=== PATIENT | female | born 1950 | race Caucasian/White ===

== ENCOUNTER 2024-01-20 07:34 | Outpatient (OUT) | payer MEDICARE, SELFPAY ==
[2024-01-20 08:06] LABS: Basophils Percent Auto 0.5 % (0.2-2.0); Eosinophils Absolute Auto 0.1 10^3/uL (0.0-0.7); Eosinophils Percent Auto 2.5 % (0.9-7.0); Hematocrit 42.4 % (36.0-48.0); Hemoglobin 13.7 g/dL (12.0-16.0); Immature Granulocytes Abs Auto 0.01 10^3/uL (0.00-0.03); Immature Granulocytes Pct Auto 0.2 % (0.0-0.5); Lymphocytes Percent Auto 48.4 % (20.5-60.0); Mean Corpuscular HGB Conc 32.3 g/dL (29.9-35.2); Mean Corpuscular Hemoglobin 29.1 pg (26.7-34.0); Mean Corpuscular Volume 90.2 fL (81.0-99.0); Mean Platelet Volume 10.3 fL (9.5-13.5); Monocytes Absolute Auto 0.3 10^3/uL (0.3-0.8); Monocytes Percent Auto 7.9 % (1.7-12.0); Neutrophils Absolute Auto 1.7 10^3/uL (1.4-6.5); Neutrophils Percent Auto 40.5 % (43.0-75.0); Platelet Count 186 10^3/uL (150-450); Red Cell Distribution Width 12.6 % (11.0-15.0); White Blood Count 4.1 10^3/uL (4.0-11.0)
[2024-01-20 08:16] LABS: Alanine Aminotransferase 26 U/L (14-59); Albumin Level 3.6 g/dL (3.4-5.0); Alkaline Phosphatase 59 U/L (46-116); Anion Gap 7.3; Aspartate Amino Transferase 19 U/L (15-37); BUN Creatinine Ratio 21.8; Bilirubin Total 1.5 mg/dL (0.2-1.0); Calcium 8.9 mg/dL (8.5-10.1); Chloride 105 mmol/L (98-107); Chol HDL Ratio 2.2; Cholesterol 158 mg/dL (<=200); Estimated GFR (African America >60 (>=60); Estimated GFR (Non-African Ame 54 (>=60); Globulin 3.7 g/dL; Glucose 104 mg/dL (74-106); HDL Cholesterol 72 mg/dL (40-60); Potassium 4.3 mmol/L (3.5-5.1); Sodium 141 mmol/L (136-145); Total Protein 7.3 g/dL (6.4-8.2); Triglycerides 64 mg/dL (<=150); VLDL CHOLESTEROL 12.8 mg/dL
== END 2024-01-20 07:35 | disposition home or self-care (01) ==
LOC: LAB 07:40
PROVIDERS: PCP Family Medicine; Visit Provider Family Medicine
DX: E78.5 Hyperlipidemia, unspecified (principal); M81.0 Age-related osteoporosis without current pathological fracture
CPT/HCPCS: 36415; 80053; 80061; 85025

== ENCOUNTER 2024-04-24 13:04 | Outpatient (OUT) | payer MEDICARE, SELFPAY | END 2024-04-24 13:05 | disposition home or self-care (01) | LOC: PST 13:04 | PROVIDERS: PCP Family Medicine; Visit Provider Surgery | DX: Z01.818 Encounter for other preprocedural examination (principal); Z12.11 Encounter for screening for malignant neoplasm of colon ==

== ENCOUNTER 2024-05-13 06:14 | Day surgery (SDC) | payer MEDICARE, SELFPAY ==
--- NOTE | 2024-05-13 | OP_ITS ---
OPERATION DATE: 05/13/2024 PREOPERATIVE DIAGNOSIS: Colorectal screening. POSTOPERATIVE DIAGNOSIS: Redundant colon. PROCEDURE: Colonoscopy to cecum. SURGEON: Jeromy Carolina M.D. ANESTHESIA: Monitored anesthesia care. ESTIMATED BLOOD LOSS: Zero. INDICATIONS AND CONSENT: Patient is a 73-year-old female presents for colorectal screening. Indications, risks, benefits, alternatives of proceeding with colonoscopy were explained extensively to the patient, including the risks of bleeding, colon perforation or anesthetic complications. All of her questions were answered. Informed consent was obtained. PROCEDURE: Patient brought to the operating room, placed in the left lateral decubitus position. Monitored anesthesia care was provided. Rectal exam was performed which revealed no masses or blood. The scope was inserted into the anal canal. Under direct visualization was advanced. With the aid of abdominal compression, as well as switching to a pediatric scope, the scope was able to be advanced to the cecum where cecal markings were clearly identified. There was noted to be a good prep. Upon withdrawal of the scope, mucosal surfaces were carefully examined. There were no mass lesions or polyps. No inflammatory changes or ulcerations. No significant diverticulosis. The scope was retroflexed in the anal canal. There was no significant hemorrhoidal disease. Scope was then withdrawn. Patient tolerated procedure well, was sent to recovery room in good condition. Follow up screening should be in 10 years if patient remains in good health. CC: Rosa Saavedra M.D. LOGAN
--- OUTSIDE RECORDS SUMMARY | 2024-05-13 06:17 | XMS_ITS ---
Patient Summarization (C-CDA 2.1 CCD) Created on: May 13, 2024 ALICJA MOONEY : 1950 Sex: Female Author Organization Sample organization Care Team Providers Care Steward/Stewardess Name Role Phone DR DESTINY RODARTE Attending Unavailable ASTER, DR DESTINY Somers Admitting Unavailable ASTER, DR DESTINY Somers Primary Care Unavailable ASTER, DR DESTINY Somers Consulting Unavailable ASTER, DR DESTINY Somers Admitting Unavailable ASTER, DR DESTIYN Somers Primary Care Unavailable ASTER, DR DESTINY Somers Consulting Unavailable ASTER, DR DESTINY Somers Attending Unavailable Rosa Saavedra Unavailable ROSA SAAVEDRA Primary Care Physician ROSA SAAVEDRA Referring Unavailable Jeromy DONALD Attending Unavailable Allergies Allergy Classification Reported Allergen(s) Allergy Type Date of Onset Reaction(s) Facility (1 source) No Known Medication Allergies; Translations: [No Known Medication Allergies] Propensity to adverse reactions (disorder) [facility] Repository Encounters Encounter Date Encounter Type Care Provider Facility Start: 03-04-2024 End: 03-05-2024 ambulatory ROSA SAAVEDRA Facility:[facility] Start: 03-04-2024 End: 03-04-2024 Patient encounter procedure Jeromy DONALD General Surgery Ge/[facility] Start: 01-30-2024 ambulatory ROSA SAAVEDRA Facility:[facility] Start: 01-16-2024 End: 01-16-2024 ambulatory [facility] Work Phone: Start: 01-16-2024 End: 01-16-2024 Patient encounter procedure [facility] Work Phone: Start: 09-06-2023 End: 09-06-2023 ambulatory Rosa Saavedra Other [employer] Other Start: 09-06-2023 Encounter by leigh Saavedra [facility] Start: 07-23-2023 End: 07-23-2023 ambulatory Rosa Saavedra Other [employer] Other Start: 07-23-2023 Office outpatient vi sit 15 minutes Rosa Keri [facility] Start: 07-10-2023 End: 07-10-2023 ambulatory Rosa Saavedra Other [employer] Other Start: 07-10-2023 Telephone encounter Rosa Keri [facility] Start: 08-20-2022 End: 08-21-[address] DESTINY RODARTE Facility:[facility] Start: 08-14-2022 End: 08-15-[address] DESTINY RODARTE Facility:[facility] Immunizations Immunization Date Immunization Notes Care Provider Fa cility 08-20-2023 influenza virus vaccine, unspecified formulation Jeromy DONALD [facility] 04-18-2022 SARS-CoV-2 (COVID-19 ) mRNA-1273 vaccine Jeromy NILL [facility] 10-12-2021 SARS-CoV-2 (COVID-19 ) mRNA-1273 vaccine [email or web address] [facility] Comment on above: Result Comment: 2023: [id number] 01-31-2021 SARS-CoV-2 (COVID-19 ) mRNA-1273 vaccine Jeromy Code42L [facility] Comment on above: Result Comment: 2023: [id number] 01-03-2021 SARS-CoV-2 (COVID-19 ) mRNA-1273 vaccine Jeromy Code42L [facility] Comment on above: Result Comment: 2023: [id number] Medications Current Medications Medication Drug Class(es) Dates Sig (Normalized) Sig (Original) atorvastatin 10 mg oral tablet (5 sources) HMG-CoA Reductase Inhibitor Start: 01-15-2024 take 1 tablet by mouth once daily atorvastatin 10 mg Tab 10 mg = 1 tab(s), Oral, Daily, Refills(s) 0 Start Date: 01/15/24 Status: Ordered take 1 tablet by suhas th every twenty-four hours Atorvastatin Calcium 10 MG 1 tablet Oral ly Once a day for 90 days Active Fish Oils (1 source) Start: 03-04-2024 take 1 capsule by mouth once daily Fish Oil 1000 mg oral capsule 1,000 mg = 1 cap(s), Oral, Daily, Refills(s) 0 Start Date: 03/04/24 Status: Ordered ibandronic acid 150 mg oral tablet (3 sources) Bisphosphonate Start: 01-16-2024 take 150 mg by mouth every month Ibandronate Active 150 MG PO every month January 16, 2024 12:00am take 1 tablet by mouth once tremayne y Ibandronate Sodium 150 MG 1 tablet 60 minutes before the first food, beverage or medicine of the day with plain water Orally for 90 days Active Multi Vitamins oral tablet (1 source) Start: 03-04-2024 take 1 tablet by mouth once daily Multi Vitamins oral tablet 1 tab(s), Oral, Daily, Refill(s) 0 Start Date: 03/04/24 Status: Ordered Payers Date Payer Category Payer Medicare [id number] 1960 Unknown [id number] 1950 Unknown [id number] 1950 Unknown [id number] 1950 Unknown [id number] Plan of Treatment Date Care Activity Detail Author Start: 01-16-2024 Patient referral [facility] Work Phone: Comprehensive metabo lic 2000 panel - Serum or Plasma [facility] Patient referral [facility] Work Phone: [facility] Problems Problem Classification Problem Date Documented Da te Episodic/Chronic Anxiety disorders (2 sources) Anxiety; Translations: [Other specified anxiety disorders] 01-16-2024 Chronic Disorders of lipid metabolism (10 sources) Pure hypercholesterolemi a, unspecified; Translations: [Dyslipidemia] Onset: 08-14-2022 Chronic Malaise and fatigue (5 sources) Other fatigue; Translations: [OTHER FATIGUE] Onset: 08-15-2022 Episodic Osteoporosis (5 sources) Senile osteoporosis; Translations: [Age-related osteoporosis without current pathological fracture] Chronic Other screening for suspected conditions (not mental disorders or infectious disease) (3 sources) Patient encounter status; Translations: [Encounter for screening for malignant neoplasm of colon] Onset: 03-04-2024 01-16-2024 Episodic Unclassified (1 source) Body mass index 20-24 - normal 03-04-2024 Unclassified (2 sources) Patient encounter status 02-07-2024 Procedures Date Procedure Procedure Detail Performing Clinician Start: 11-04-2013 Colonoscopy Jeromy MAGANA Screening for malign ant neoplasm of colon Rosa Saavedra Other Results Test Name Value Interpretation Reference Range Facil ity Consent for Procedure/Surger yon 03-06-2024 Consent for Procedure/Surgery [id number] .00TIFF Normal [facility] Facesheeton 03-05-2024 Facesheet [id number] .00TIFF Normal [facility] Ambulatory Visit Summaryon 0 03-04-2024 Ambulatory Visit Summary ALICJA MOONEY :1950 Visit Date:03/04/2024 Ambulatory Visit Instructions Your Diagnosis Screening for malignant neoplasm of colon Your Care Team Attending Physician - GE ALVARES, Jeromy Lopez Primary Care Physician - ROSA SAAVEDRA MD Referring Physician - ROSA SAAVEDRA MD This Is Your Medications List Contact prescribing physician if questions or concerns atorvastatin (atorvastatin 10 mg Tab) multivitamin (Multi Vitamins oral tablet) omega-3 polyunsaturated fatty acids (Fish Oil 1000 mg oral capsule) Procedures Performed Colonoscopy (11/04/2013). Discharge Vitals Heart Rate (Peripheral) 68 Respiratory Rate 16 Blood Pressure 118/62 Height 167 cm Height 66 in Weight 67.2 kg Weight 147.84 lb BMI 24.1 Medications What How Much When Instructions Unchanged atorvastatin (atorvastatin 10 mg Tab) 1 Tablets By Mouth Every day Contact prescribing physician if questions or concerns Unchanged multivitamin (Multi Vitamins oral tablet) 1 Tablets By Mouth Every day Contact prescribing physician if questions or concerns Unchanged omega-3 polyunsaturated fatty acids (Fish Oil 1000 mg oral capsule) 1 Capsules By Mouth Every day Contact prescribing physician if questions or concerns Allergies No Known Allergies No Known Medication Allergies Problems Ongoing - Any problem that you are currently receiving treatment for. Anxiety BMI 24.0-24.9, adult Dyslipidemia Osteoporosis Screen for colon cancer Screening for malignant neoplasm of colon Patient Survey You may receive a survey via text or e-mail asking about your office visit. Please share your experience with us by completing your survey. We appreciate your feedback and thank you for choosing us for your care. Normal [facility] Physician Referralon 024 Physician Referral [id number] .00TIFF Normal [facility] TSHon 08-20-2022 TSH 1.668 uIU/mL Normal 0.358-3.740 [facility] Comment on above: Performed By: #### T SH #### [facility] [address] [place] [address] Dr. Toby Toro CBC AUTO DIFFon 08-14-2022 BASO # 0.0 103/ul Normal 0.0-0.1 [facility] Comment on above: Performed By: #### C BC #### [facility] [address] [place] [address] Dr. Toby Toro Basophils/100 WBC (Bld) 0.6 % Normal 0.2-2.0 [facility] Comment on above: Performed By: #### C BC #### [facility] [address] [place] [address] Dr. Toby Toro EO # 0.1 103/ul Normal 0.0-0.7 [facility] Comment on above: Performed By: #### C BC #### [facility] [address] [place] [address] Dr. Toby Toro Eosinophils/100 WBC (Bld) 2.5 % Normal 0.9-7.0 [facility] Comment on above: Performed By: #### C BC #### [facility] [address] [address] [address] Toby Toro Erythrocyte distribution width (RBC) [Ratio] 13.3 % Normal 11.0-15.0 [facility] Comment on above: Performed By: #### C BC #### [facility] [address] [place] [address] Dr. Toby Toro Hematocrit (Bld) [Volume fraction] 42.5 % Normal 36.0-48.0 [facility] Comment on above: Performed By: #### C BC #### [facility] [address] [place] [address] Dr. Toby Toro Hemoglobin (Bld) [Mass/Vol] 13.7 g/dL Normal 12.0-16.0 [facility] Comment on above: Performed By: #### C BC #### [facility] [address] [place] [address] Dr. Toby Toro IG # 0.01 10e3/ul Normal 0.00-0.03 [facility] Comment on above: Performed By: #### C BC #### [facility] [address] [place] [address] Dr. Toby Toro IG % 0.3 % Normal 0.0-0.5 [facility] Comment on above: Performed By: #### C BC #### [facility] [address] [place] [address] Dr. Toby Toro LYMPH # 1.8 103/ul Normal 1.2-3.8 [facility] Comment on above: Performed By: #### C BC #### [facility] [address] [place] [address] Dr. Toby Toor Lymphocytes/100 WBC (Bld) 48.8 % Normal 20.5-60.0 [facility] Comment on above: Performed By: #### C BC #### [facility] [address] [place] [address] Dr. Toby Toro MANUAL DIFF REQ NO Normal [facility] Comment on above: Performed By: #### C BC #### [facility] [address] [place] [address] Dr. Toby Toro MCH (RBC) [Entitic mass] 29.0 pg Normal 26.7-34.0 [facility] Comment on above: Performed By: #### C BC #### [facility] [address] [place] [address] Dr. Toby Toro MCHC (RBC) [Mass/Vol] 32.2 g/dL Normal 29.9-35.2 [facility] Comment on above: Performed By: #### C BC #### [facility] [address] [place] [address] Dr. Toby Toro MCV (RBC) [Entitic vol] 90.0 fL Normal 81.0-99.0 [facility] Comment on above: Performed By: #### C BC #### [facility] [address] [place] [address] Dr. Toby Toro MONO # 0.3 103/ul Normal 0.3-0.8 [facility] Comment on above: Performed By: #### C BC #### [facility] [address] [place] [address] Dr. Toby Toro Monocytes/100 WBC (Bld) 8.3 % Normal 1.7-12.0 [facility] Comment on above: Performed By: #### C BC #### [facility] [address] [place] [address] Dr. Toby Toro NEUT # 1.4 103/ul Normal 1.4-6.5 [facility] Comment on above: Performed By: #### C BC #### [facility] [address] [place] [address] Dr. Toby Toro Neutrophils/100 WBC (Bld) 39.5 % Critically low 43.0-75.0 [facility] Comment on above: Performed By: #### C BC #### [facility] [address] [place] [address] Dr. Toby Toro Platelet mean volume (Bld) [Entitic vol] 10.3 fL Normal 9.5-13.5 [facility] Comment on above: Performed By: #### C BC #### [facility] [address] [address] [address] Toby Toro PLT 181 103/ul Normal 150-450 [facility] Comment on above: Performed By: #### C BC #### [facility] [address] [address] [address] Toby Toro RBC 4.72 106/ul Normal 4.20-5.40 [facility] Comment on above: Performed By: #### C BC #### [facility] [address] [address] [address] Toby Toro WBC 3.6 103/ul Critically low 4.0-11.0 [facility] Comment on above: Performed By: #### C BC #### [facility] [address] [place] [address] Dr. Toby Toro LIPID PROFILEon 08-14-2022 CHOL-HDL RATIO NORM SEE BELOW Normal [facility] Comment on above: Result Comment: 3.3 - 4.4 LOW RISK 4.4 - 7.1 AVERAGE RISK 7.1 - 11.0 MODERATE RISK >11.0 HIGH RISK Performed By: #### C MP, LIPID #### [facility] [address] [place] [address] Dr. Toby Toro Cholesterol [Mass/Vol] 201 mg/dL Critically high <=200 [facility] Comment on above: Performed By: #### C MP, LIPID #### [facility] [address] [address] [address] Toby Toro Cholesterol in HDL [Mass/Vol] 72 mg/dL Critically high 40-60 [facility] Comment on above: Performed By: #### C MP, LIPID #### [facility] [address] [address] [address] Toby Toro Cholesterol in LDL [Mass/Vol] 106.6 mg/dL Normal [facility] Comment on above: Performed By: #### C MP, LIPID #### [facility] [address] [place] [address] Dr. Toby Toro Cholesterol.total/C holesterol in HDL [Mass ratio] 2.8 {ratio} Normal [facility] Comment on above: Performed By: #### C MP, LIPID #### [facility] [address] [address] [address] Toby Toro HDL NORMAL > or = 60 mg/dl - LO W CARDIOVASCULAR RISK <40 mg/dl - HIGH CARDIOVASCULAR RISK Normal [facility] Comment on above: Performed By: #### C MP, LIPID #### [facility] [address] [address] [address] Toby Toro LDL CALC NORMAL SEE BELOW Normal [facility] Comment on above: Result Comment: <100 mg/dl OPTIMAL 100 - 129 mg/dl NEAR OR ABOVE OPTIMAL 130 - 159 mg/dl BORDERLINE HIGH 160 - 189 mg/dl HIGH >190 mg/dl VERY HIGH Performed By: #### C MP, LIPID #### [facility] [address] [place] [address] Dr. Toby Toro Triglyceride [Mass/Vol] 112 mg/dL Normal <=150 [facility] Comment on above: Performed By: #### C MP, LIPID #### [facility] [address] [place] [address] Dr. Toby Toro VLDL CALC 22.4 mg/dL Normal [facility] Comment on above: Performed By: #### C MP, LIPID #### [facility] [address] [place] [address] Dr. Toby Toro PROF 14(COMP METB)on 022 Albumin [Mass/Vol] 3.9 g/dL Normal 3.4-5.0 [facility] Comment on above: Performed By: #### C MP, LIPID #### [facility] [address] [place] [address] Dr. Toby Toro Albumin/Globulin [Mass ratio] 1.1 {ratio} Normal [facility] Comment on above: Performed By: #### C MP, LIPID #### [facility] [address] [place] [address] Dr. Toby Toro ALP [Catalytic activity/Vol] 87 U/L Normal 46-116 [facility] Comment on above: Performed By: #### C MP, LIPID #### [facility] [address] [address] [address] Toby Toro ALT [Catalytic activity/Vol] 22 U/L Normal 14-59 [facility] Comment on above: Performed By: #### C MP, LIPID #### [facility] [address] [place] [address] Dr. Toby Toro Anion gap [Moles/Vol] 11.5 mmol/L Normal [facility] Comment on above: Performed By: #### C MP, LIPID #### [facility] [address] [address] [address] Toby Toro AST [Catalytic activity/Vol] 15 U/L Normal 15-37 [facility] Comment on above: Performed By: #### C MP, LIPID #### [facility] [address] [place] [address] Dr. Toby Toro Bilirubin [Mass/Vol] 1.9 mg/dL Critically high 0.2-1.0 [facility] Comment on above: Performed By: #### C MP, LIPID #### [facility] [address] [place] [address] Dr. Toby Toro Calcium [Mass/Vol] 9.2 mg/dL Normal 8.5-10.1 [facility] Comment on above: Performed By: #### C MP, LIPID #### [facility] [address] [address] [address] Toby Toro Chloride [Moles/Vol] 105 mmol/L Normal 98-107 [facility] Comment on above: Performed By: #### C MP, LIPID #### [facility] [address] [place] [address] Dr. Toby Toro CO2 [Moles/Vol] 28.8 mmol/L Normal 21.0-32.0 [facility] Comment on above: Performed By: #### C MP, LIPID #### [facility] [address] [place] [address] Dr. Toby Toro Creatinine [Mass/Vol] 0.95 mg/dL Normal 0.55-1.02 [facility] Comment on above: Performed By: #### C MP, LIPID #### [facility] [address] [address] [address] Toby Toro EGFR-AF MAURITIAN >60 Normal >=60 [facility] Comment on above: Performed By: #### C MP, LIPID #### [facility] [address] [address] [address] Toby Toro EGFR-NON AF MAURITIAN 58 mL/min/1.73m2 Critically low >=60 [facility] Comment on above: Performed By: #### C MP, LIPID #### [facility] [address] [address] [address] Toby Toro Globulin (S) [Mass/Vol] 3.6 g/dL Normal [facility] Comment on above: Performed By: #### C MP, LIPID #### [facility] [address] [address] [address] Toby Toro Glucose [Mass/Vol] 103 mg/dL Normal 74-106 [facility] Comment on above: Performed By: #### C MP, LIPID #### [facility] [address] [address] [address] Toby Toro Potassium [Moles/Vol] 4.3 mmol/L Normal 3.5-5.1 [facility] Comment on above: Performed By: #### C MP, LIPID #### [facility] [address] [address] [address] Toby Toro Protein [Mass/Vol] 7.5 g/dL Normal 6.4-8.2 [facility] Comment on above: Performed By: #### C MP, LIPID #### [facility] [address] [address] [address] Toby Toro Sodium [Moles/Vol] 141 mmol/L Normal 136-145 [facility] Comment on above: Performed By: #### C MP, LIPID #### [facility] [address] [address] [address] Toby Toro Urea nitrogen [Mass/Vol] 24.0 mg/dL Critically high 7.0-18.0 [facility] Comment on above: Performed By: #### C MP, LIPID #### [facility] [address] [place], [place] [address] Dr. Toby Toro Urea nitrogen/Creatinine [Mass ratio] 25.3 mg/mg Normal [facility] Comment on above: Performed By: #### C MP, LIPID #### [facility] [address] [place], [place] [address] Dr. Toby Toro Social History Date Type Detail Facility Start: 03-04-2024 Tobacco smoking status Never s moked tobacco (finding) [facility] Start: 1950 Sex Assigned At Female F [facility] Unknown if ever smoked [employer] Other Sex Assigned At [facility] Tobacco smoking status Never Gener [facility] Vital Signs Date Time Vital Sign Value Performing Clinician Facility 03-04-2024 13:15-0400 Blood Pressure Location [employer] [facility] 03-04-2024 13:15-0400 Diastolic blood pressure 62 mm[Hg] [email or web address] [facility] 03-04-2024 13:15-0400 Heart rate 68 /min [email or web address] [facility] 03-04-2024 13:15-0400 Respiratory rate 16 /min [employer] [facility] 03-04-2024 13:15-0400 Systolic blood pressure 118 mm[Hg] Jeromy [employer] [facility] 01-16-2024 10:28-0500 Body height 168.28 cm [facility] 01-16-2024 10:28-0500 Body mass index (BMI) [Ratio] 24.2 kg/m2 [facility] 01-16-2024 10:28-0500 Body weight 68.6 kg [facility] 01-16-2024 10:28-0500 Diastolic blood pressure 83 mm[Hg] [facility] 01-16-2024 10:28-0500 Heart rate 86 /min [facility] 01-16-2024 10:28-0500 Systolic blood pressure 129 mm[Hg] [facility] 07-23-2023 09:30-0400 Body height 168.28 cm Rosa Keri Other [employer] Other 07-23-2023 09:30-0400 Body mass index (BMI) [Ratio] 24.19 kg/m2 Rosa Keri Other [employer] Other 07-23-2023 09:30-0400 Body weight 68.49 kg Rosa Keri Other [employer] Other 07-23-2023 09:30-0400 Diastolic blood pressure 76 mm[Hg] Rosa Keri Other [employer] Other 07-23-2023 09:30-0400 Systolic blood pressure 121 mm[Hg] Rosa Keri Other [employer] Other Functional Status Date Assessment Result Facility 03-04-2024 Functional Status N/A [facility] Clinical Note 03-04-2024 Note Date & Type Note Facility 03-04-2024 Note Chief Complaint consultation for colonoscopy HPI Staff 73 year old female presents on consultation from Dr. Saavedra for screening colonoscopy. Denies abdominal or rectal pain. No rectal bleeding or change in bowel habits. Denies nausea or vomiting. No unexplained weight loss. Last colonoscopy completed 10/2013-normal. No known family history of colon cancer. History of Present Illness 73 yo female with hypercholesterolemia, anxiety; referred for colorectal screening; denies change in bms or blood in stools; no abdominal complaints; denies asa or NSAID use, no SBE prophylaxis; no abdominal operations, last colonoscopy 2012, wnl; no fmhx of GI malignancy or IBD; no tobacco use. Review of Systems PHQ Score Initial Depression Screen Score: 0 SCORE ROS - Provider Constitutional: no fever, no sweats, no weight loss. Eyes: no glasses, no blurred vision, no visual loss. ENMT: no dentures, no hoarseness, no swallowing difficulties, no hearing loss, no ear infection(s), no nose bleeds. Cardiovascular: normal blood pressure, no chest pain, regular heartbeat, no heart murmur. Respiratory: no shortness of breath, no cough, no asthma, no wheezing. Gastrointestinal: no nausea, no vomiting, no diarrhea, no constipation, no blood in stool, no change in bowel habits, no abdominal pain, no hepatitis. Genitourinary: no kidney stones, no urine infection, no dysuria. Musculoskeletal: no pain, no weakness. Skin: no changing moles, no rash, no skin lumps. Neurologic: no seizures, no epilepsy, no headache. Psychiatric: no emotional or psychiatric problem. Heme/Lymph: no bleeding problems, no anemia, no blood clots, no transfusions. Allergy/Immunologic: no swollen lymph nodes/glands, no IV drug abuse. Other: Additional ROS info: Except as noted in the above Review of Systems and in the History of Present Illness, all other systems have been reviewed and are negative or noncontributory. Physical Exam Vitals & Measurements HR: 68(Peripheral) RR: 16 BP: 118/62 HT: 66 in HT: 167 cm WT: 67.2 kg WT: 147.84 lb BMI: 24.1 HEENT: normal conjunctiva, sclera clear, no scleral icterus, EOM intact, PERRLA, oral mucosa moist without lesions. Neck: trachea midline, no mass, symmetric, no thyromegaly or nodules, no adenopathy Respiratory: lungs CTA, respirations non labored. Cardiovascular: regular rate and rhythm, no murmur, no pedal edema or varicosities. Gastrointestinal: soft, non distended, no tenderness, no masses, no palpable hernias, diastasis recti no, no hepatosplenomegaly; normal bs Lymphatic: no cervical adenopathy, no supraclavicular adenopathy. Musculoskeletal: normal gait, digits and nails without infection, nodes, cyanosis, clubbing. Skin: no rashes, no lesions, no ulcers, no subcutaneous nodules, induration. Psychiatric/Neuro: oriented to time, place, person, judgement normal, affect appropriate for age, insight intact, no focal deficits. Tests: , review of old records completed , Discussed surgical options, risks, and possible complications with patient. Assessment/Plan 1. Screening for malignant neoplasm of colon (Z12.11: Encounter for screening for malignant neoplasm of colon) plan colonoscopy under anesthesia, informed consent obtained. Follow-up No qualifying data available Problem List/Past Medical History Ongoing Anxiety BMI 24.0-24.9, adult Dyslipidemia Osteoporosis Screen for colon cancer Screening for malignant neoplasm of colon Historical No qualifying data Procedure/Surgical History Colonoscopy (11/04/2013). Medications atorvastatin 10 mg Tab, 10 mg= 1 tab(s), Oral, Daily Fish Oil 1000 mg oral capsule, 1000 mg= 1 cap(s), Oral, Daily Multi Vitamins oral tablet, 1 tab(s), Oral, Daily Allergies No Known Allergies No Known Medication Allergies Social History Alcohol - Denies Alcohol Use, 03/04/2024 Substance Abuse - Denies Substance Abuse, 03/04/2024 Tobacco Never (less than 100 in lifetime) Tobacco Use:. Never Smokeless Tobacco Use:., 03/04/2024 Family History Heart disease: Mother, Father and Brother. Hyperlipidemia: Mother. Hypertension: Sister. Parkinson disease: Father. Immunizations Vaccine Date Status Comments influenza virus vaccine, inactivated 08/20/2023 Recorded SARS-CoV-2 (COVID-19) mRNA-1273 vaccine 04/18/2022 Recorded SARS-CoV-2 (COVID-19) mRNA-1273 vaccine 10/12/2021 Recorded 2024-02-07: TPV70 SARS-CoV-2 (COVID-19) mRNA-1273 vaccine 01/31/2021 Recorded 2024-02-07: TPV70 SARS-CoV-2 (COVID-19) mRNA-1273 vaccine 01/03/2021 Recorded 2024-02-07: TPV70 [facility] Comment on above: Result Comment: Elec tronically Signed By: GE ALVARES, Jeromy Downing\Date and Time Signed: 03/04/24 13:33 EDT Evaluation note 07-23-2023 Note Date & Type Note Facility 07-23-2023 Evaluation note Encounter Date Diagnosis Assessment Notes Jun, Age-related osteoporosis without current pathological fracture (ICD-10 - M81.0) Recent DEXA scan did show osteoporosis to bilateral femoral necks and osteopenia spine and bilateral hips. Discussed treatment options with patient today. She is agreeable to starting Boniva monthly. Medication profile and possible SE reviewed with patient today. Take as prescribed. Take 30 minutes prior to food/med/drink in the AM, take with full glass of water, and sit upright for 30 minutes after taking. Recent Calcium level normal. Did recommend that she start taking 600 IU of Vitamin D daily, Calcium 1200 mg daily, and start weight bearing exercises as tolerated., Osteoporosis: Care Instructions material was printed, Deciding About Bisphosphonate Medicine for Osteoporosis material was printed, alendronate [Medication Leaflet] material was printed [employer] Other Evaluation + Plan note Note Date & Type Note Facility Evaluation + Plan note No data available for this section [facility] Evaluation note Note Date & Type Note Facility Evaluation note No Information [facility] Other Evaluation note Note Date & Type Note Facility Evaluation note Diagnosis Onset Date Screening for colorectal cancer acute [facility] Work Phone: History general Narrative - Reported Note Date & Type Note Facility History general Narrative - Reported Type Medical History Hyperlipidemia [facility] Other Hospital Discharge instructions Note Date & Type Note Facility Hospital Discharge instructions Ambulatory OrdersReferral to General Surgery Time Frame: 01/16/24, Location: None Selected [facility] Work Phone: Hospital Discharge instructions Note Date & Type Note Facility Hospital Discharge instructions No data available for this section [facility] Progress note Note Date & Type Note Facility Progress note No data available for this section [facility] Summary Purpose Family History No Family History Records Found Relationship Condition Age at Onset Recorded Date/T [place] father Unknown family member Heart disease Unknown Unknown sister Hypertension Unknown Advance Directives No Advanced Directives Records Found Advance Directive Response Recorded Date/ Time Advance Directives No December 12:01pm Chief Complaint and Reason for Visit Chief Complaint Wellness Reason for Visit Screening for colore ctal cancer Additional Source Comments INFORMATION SOURCE (unrecogn ized section and content) DATE CREATED AUTHOR 08/26/2022 [facility] DATE CREATED AUTHOR AUTHOR'S ORGANIZ ATION 03/07/2024 [place] REASON FOR VISIT (unrecogniz ed section and content) DEXA resultResults of DEXA S canrefil Atorvastatin Care Teams (unrecognized sec tion and content) Team Status: Active Member Role Status Dates Rosa Saavedra MD Primary Care Provider Active Team Status: Inactive Member Role Status Dates Rosa Saavedra MD Primary Care Provide r, Attending Provider Active Start: January 16, 2024 End: January 16, 2024 Goals (unrecognized section and content) Goals may be documented in a n alternate section FOR RECORDS PERTAINING TO PATIENTS WHO ARE OR HAVE BEEN ENROLLED IN A CHEMICAL DEPENDENCY/SUBSTANCEABUSE PROGRAM, SOME INFORMATION MAY BE OMITTED. This clinical summary was aggregated from multiple sources. Caution should be exercised in using it in the provision of clinical care. This summary normalizes information from multiple sources, and as a consequence, information in this document may materially change the coding, format and clinical context of patient data. In addition, data may be omitted in some cases. CLINICAL DECISIONS SHOULD BE BASED ON THE PRIMARY CLINICAL RECORDS. [facility] [facility]. provides no warranty or guarantee of the accuracy or completeness of information in this document.
[2024-05-13 06:41] VITALS: BP 132/88; PULSE 100; TEMP 35.8; O2SAT 98; BMI 22.4
[2024-05-13] MEDS: LACTATED RINGER'S SOLUTION 1,000 ML 50 ML IV (07:00)
[2024-05-13 07:53] VITALS: BP 114/67; PULSE 85; O2SAT 97
[2024-05-13 08:10] VITALS: BP 95/49; PULSE 80; O2SAT 97
--- NOTE | 2024-05-13 08:13 | PC.NURSE ---
Lying on left side trying to pass flatus
== END 2024-05-13 08:28 | disposition home or self-care (01) ==
PROVIDERS: PCP Family Medicine; Visit Provider Surgery
PROC: (CPT G0121; principal; 2024-05-13 07:30)
DX: Z12.11 Encounter for screening for malignant neoplasm of colon (principal); Q43.8 Other specified congenital malformations of intestine; E78.00 Pure hypercholesterolemia, unspecified; F41.9 Anxiety disorder, unspecified
CPT/HCPCS: G0121; J2371; J2704

== ENCOUNTER 2025-03-16 10:56 | Outpatient (OUT) | payer MEDICARE, SELFPAY ==
[2025-03-16 11:45] LABS: Alanine Aminotransferase 20 U/L (14-59); Albumin Globulin Ratio 1.1; Albumin Level 3.8 g/dL (3.4-5.0); Alkaline Phosphatase 84 U/L (46-116); Anion Gap 11.4; Aspartate Amino Transferase 19 U/L (15-37); BUN Creatinine Ratio 15.9; Bilirubin Total 1.6 mg/dL (0.2-1.0); Calcium 9.4 mg/dL (8.5-10.1); Carbon Dioxide 31.3 mmol/L (21.0-32.0); Chloride 105 mmol/L (98-107); Chol HDL Ratio 2.8; Cholesterol 168 mg/dL (<=200); Estimated GFR (African America >60 (>=60 mL/min/1.73m^2); Estimated GFR (Non-African Ame >60 (>=60 mL/min/1.73m^2); Globulin 3.5 g/dL; Glucose 101 mg/dL (74-106); HDL Cholesterol 61 mg/dL (40-60); Potassium 4.7 mmol/L (3.5-5.1); Sodium 143 mmol/L (136-145); Total Protein 7.3 g/dL (6.4-8.2); Triglycerides 120 mg/dL (<=150)
== END 2025-03-16 10:57 | disposition home or self-care (01) ==
LOC: LAB 10:57
PROVIDERS: PCP Family Medicine; Visit Provider Family Medicine
DX: E78.2 Mixed hyperlipidemia (principal)
CPT/HCPCS: 36415; 80053; 80061

== ENCOUNTER 2025-06-08 08:46 | Outpatient (OUT) | payer MEDICARE, OTHER, SELFPAY ==
--- NOTE | 2025-06-08 08:57 | US_ITS ---
The [address] [address] Patient Name: ALICJA MOONEY MRN: [id number] date: 1950 Sex: F Assigned Patient Location: [place] Current Patient Location: Accession/Order Number: [id number] Exam Date: 06/08/2025 10:47 Report Date: 06/08/2025 10:48 At the request of: MONIKA STORY DO Procedure: US right upper quadrant LIMITED RIGHT UPPER QUADRANT ABDOMINAL ULTRASOUND CLINICAL HISTORY: Jaundice, High Total Bilirubin COMPARISON: None The gallbladder is physiologically distended without shadowing calculi, wall thickening or pericholecystic fluid. No intra- or extrahepatic biliary dilatation is evident. The common duct measures 3 - 4 mm. The liver is normal in echogenicity. No intrahepatic masses are seen. There is appropriate hepatopetal flow within the main portal vein. The pancreas shows no significant sonographic abnormality. Cursory evaluation of the right kidney reveals no hydronephrosis or fluid within Barcenas's pouch. US/US right upper quadrant IMPRESSION: NEGATIVE ULTRASOUND OF THE RIGHT UPPER QUADRANT. Impression dictated by: Michelle Quiroz M.D. 06/08/2025 10:48 AM Dictation Location: [place] [address] Electronically authenticated by: [id number] Y Date: 06/08/2025 10:48
--- OUTSIDE RECORDS SUMMARY | 2025-06-08 09:08 | XMS_ITS | CCD ---
Author Organization [facility] CliniSytn Care Team Providers Care Double End Tenon Operator Name Role Phone DR DESTINY RODARTE Attending Unavailable ASTER, DR DESTINY Somers Admitting Unavailable ASTER, DR DESTINY Somers Primary Care Unavailable ASTER, DR DESTINY Somers Consulting Unavailable ASTER, DR DESTINY Somers Admitting Unavailable ASTER, DR DESTINY Somers Primary Care Unavailable ASTER, DR DESTINY Somers Consulting Unavailable ASTER, DR DESTINY Somers Attending Unavailable Rosa Saavedra Unavailable ROSA SAAVEDRA Primary Care Physician Jeromy DONALD Attending ROSA Caban Unavailable Jeromy DONALD Attending Unavailable Rosa Saavedra MD Primary Care Provider Rosa Saavedra MD Attending Provider Jen Fu DO Attending Provider Allergies Allergy Classification Reported Allergen(s) Allergy Type Date of Onset Reaction(s) Facility (1 source) No Known Medication Allergies; Translations: [No Known Medication Allergies] Propensity to adverse reactions (disorder) [facility] Repository Medications Current Medications Medication Drug Class(es) Dates Sig (Normalized) Sig (Original) atorvastatin 10 mg oral tablet (9 sources) HMG-CoA Reductase Inhibitor Start: 09-18-2024 take 1 tablet by mouth once daily Atorvastatin 10 mg tablet Active 0 .ROUTE .COMPLEX 90 September 18, 2024 8:15pm TAKE 1 TABLET BY MOUTH EVERY DAY FOR 90 DAYS Complies with drug therapy Start: 01-15-2024 End: 09-18-2024 take 1 tablet by mouth once daily Atorvastatin 10 mg tablet Discontinued 1 TAB PO Daily January 15, 2024 1:00am September 18, 2024 8:15pm [employer] tablet Orally Once a day; Note: Source Status: Refill; Refills: 3; Qty: 90 Tablet; Provider: Ann Somers take 1 tablet by suhas th every twenty-four hours Atorvastatin Calcium 10 MG 1 tablet Orally Once a day for 90 days Active Fish Oils (1 source) Start: 03-04-2024 take 1 capsule by mouth once daily Fish Oil 1000 mg oral capsule 1,000 mg = 1 cap(s), Oral, Daily, Refills(s) 0 Start Date: 03/04/24 Status: Ordered Multi Vitamins oral tablet (1 source) Start: 03-04-2024 take 1 tablet by mouth once daily Multi Vitamins oral tablet 1 tab(s), Oral, Daily, Refill(s) 0 Start Date: 03/04/24 Status: Ordered Completed/Discontinued Medications Medication Drug Class(es) Dates Sig (Normalized) Sig (Original) ibandronic acid 150 mg oral tablet (7 sources) Bisphosphonate Start: 01-16-2024 End: 03-16-2025 take 1 tablet by mouth every month Ibandronate 150 mg tablet Discontinued 150 MG PO every month January 17, 2024 10:13am March 16, 2025 10:16am take 1 tablet by mouth once tremayne y Ibandronate Sodium 150 MG 1 tablet 60 minutes before the first food, beverage or medicine of the day with plain water Orally for 90 days Active Problems Problem Classification Problem Date Documented Da te Episodic/Chronic Anxiety disorders (4 sources) Anxiety; Translations: [Other specified anxiety disorders] 01-16-2024 Chronic Disorders of lipid metabolism (16 sources) Pure hypercholesterolemi a, unspecified; Translations: [Dyslipidemia] Onset: 08-14-2022 Chronic Malaise and fatigue (5 sources) Other fatigue; Translations: [OTHER FATIGUE] Onset: 08-15-2022 Episodic Osteoporosis (7 sources) Senile osteoporosis; Translations: [Age-related osteoporosis without current pathological fracture] Chronic Other liver diseases (2 sources) Jaundice; Translations: [Unspecified jaundice] 05-26-2025 Episodic Other liver diseases (2 sources) Elevated total bilirubin; Translations: [Unspecified jaundice] 03-26-2025 Episodic Other screening for suspected conditions (not mental disorders or infectious disease) (5 sources) Patient encounter status; Translations: [Encounter for screening for malignant neoplasm of colon] Onset: 03-04-2024 01-16-2024 Episodic Unclassified (1 source) Body mass index 20-24 - normal 03-04-2024 Unclassified (2 sources) Patient encounter status 02-07-2024 Results Test Name Value Interpretation Reference Range Facility Cholesterol in LDL Calc [Mas s/Vol]on 03-16-2025 Cholesterol in LDL [Mass/Vol] 83.0 mg/dL [facility] Comment on above: <100 mg/dl [id number] 0-129 mg/dl NEAR OR ABOVE [id number] mg/dl BORDERLINE [id number] mg/dl HIGH>190 mg/dl VERY HIGH Cholesterol in VLDL Calc [Ma ss/Vol]on 03-16-2025 Cholesterol in VLDL [Mass/Vol] 24.0 mg/dL [facility] Estimated glomerular filtrat ion rate (GFR) non- Americanon 03-16-2025 GFR/1.73 sq M.predicted among non-blacks MDRD (S/P/Bld) [Vol rate/Area] mL/min/{1.73_m2} >=60 mL/min/1.73m 2 [facility] Globulin Calc (S) [Mass/Vol] on 03-16-2025 Globulin (S) [Mass/Vol] 3.5 g/dL [facility] Laboratory - Chemistry and C hemistry - challengeon 03-16-2025 Albumin [Mass/Vol] 3.8 g/dL 3.4-5.0 [facility] ALP [Catalytic activity/Vol] 84 U/L 46-116 [facility] ALT [Catalytic activity/Vol] 20 U/L 14-59 [facility] AST [Catalytic activity/Vol] 19 U/L 15-37 [facility] Bilirubin [Mass/Vol] 1.6 mg/dL High 0.2-1.0 [facility] Calcium [Mass/Vol] 9.4 mg/dL 8.5-10.1 [facility] Chloride [Moles/Vol] 105 mmol/L 98-107 [facility] Cholesterol [Mass/Vol] 168 mg/dL <=200 [facility] Cholesterol in HDL [Mass/Vol] 61 mg/dL High 40-60 [facility] Comment on above: > or =60 mg/dl - LOW CARDIOVASCULAR RISK<40 mg/dl - HIGH CARDIOVASCULAR RISK CO2 [Moles/Vol] 31.3 mmol/L 21.0-32.0 [facility] Creatinine [Mass/Vol] 0.88 mg/dL 0.55-1.02 [facility] GFR/1.73 sq M.predicted MDRD (S/P/Bld) [Vol rate/Area] mL/min/{1.73_m2} >=60 mL/min/1.73m 2 [facility] Glucose [Mass/Vol] 101 mg/dL 74-106 [facility] Potassium [Moles/Vol] 4.7 mmol/L 3.5-5.1 [facility] Protein [Mass/Vol] 7.3 g/dL 6.4-8.2 [facility] Sodium [Moles/Vol] 143 mmol/L 136-145 [facility] Triglyceride [Mass/Vol] 120 mg/dL <=150 [facility] Urea nitrogen [Mass/Vol] 14.0 mg/dL 7.0-18.0 [facility] Urea nitrogen/Creatinine [Mass ratio] 15.9 mg/mg [facility] Serum or plasma albumin/glob ulin mass ratioon 03-16-2025 Albumin/Globulin [Mass ratio] 1.1 {ratio} [facility] Serum or plasma anion gap de terminationon 03-16-2025 Anion gap [Moles/Vol] 11.4 mmol/L [facility] Serum or plasma total choles terol/high density lipoprotein (HDL) cholesterol mass ju 03-16-2025 Cholesterol.total/Cho lesterol in HDL [Mass ratio] 2.8 {ratio} [facility] Comment on above: 3.3 - 4.4 LOW RISK4. 4 - 7.1 AVERAGE RISK7.1 - 11.0 MODERATE RISK>11.0 HIGH RISK Outside Colonoscopyon 2023 Outside Colonoscopy [id number]# 1.00TIFF Normal [facility] Consent for Procedure/Surger yon 03-06-2024 Consent for Procedure/Surgery [id number] #1.00TIFF Normal [facility] Facesheeton 03-05-2024 Facesheet [id number] #1.00TIFF Normal [facility] Ambulatory Visit Summaryon 0 03-04-2024 Ambulatory Visit Summary ALICJA MOONEY :1950 Visit Date:03/04/2024 Ambulatory Visit Instructions Your Diagnosis Screening for malignant neoplasm of colon Your Care Team Attending Physician - SHABANA ALVARES, Jeromy Lopez Primary Care Physician - ANN ALVARES, ROSA Referring Physician - ROSA SAAVEDRA MD This [...] for choosing us for your care. Normal [facility] Physician Referralon 024 Physician Referral [id number] #1.00TIFF Normal [facility] TSHon 08-20-2022 TSH 1.668 uIU/mL Normal 0.358-3.740 [facility] Comment on above: Performed By: #### T #### [facility] [address] [place] [address] Dr. Toby Toro CBC AUTO DIFFon 08-14-2022 BASO # 0.0 103/ul Normal 0.0-0.1 [facility] Comment on above: Performed By: #### C BC #### [facility] [address] [place] [address] Dr. Toby Toro Basophils/100 WBC (Bld) 0.6 % Normal 0.2-2.0 [facility] Comment on above: Performed By: #### C BC #### [facility] [address] [place] [address] Dr. Toby Toro EO # 0.1 103/ul Normal 0.0-0.7 [facility] Comment on above: Performed By: #### C BC #### [facility] [address] [place] [address] Dr. Toby Toro Eosinophils/100 WBC (Bld) 2.5 % Normal 0.9-7.0 [facility] Comment on above: Performed By: #### C BC #### [facility] [address] [place] [address] Dr. Toby Toro Erythrocyte distribution width (RBC) [Ratio] 13.3 % Normal 11.0-15.0 [facility] Comment on above: Performed By: #### C BC #### [facility] [address] [place] [address] Dr. Toby Toro Hematocrit (Bld) [Volume fraction] 42.5 % Normal 36.0-48.0 [facility] Comment on above: Performed By: #### C BC #### [facility] [address] [place] [address] Dr. Toby Toro Hemoglobin (Bld) [Mass/Vol] 13.7 g/dL Normal 12.0-16.0 [facility] Comment on above: Performed By: #### C BC #### [facility] [address] [place] [address] Dr. Toby Toro IG # 0.01 10e3/ul Normal 0.00-0.03 [facility] Comment on above: Performed By: #### C BC #### [facility] [address] [place] [address] Dr. Toby Toro IG % 0.3 % Normal 0.0-0.5 [facility] Comment on above: Performed By: #### C BC #### [facility] [address] [place] [address] Dr. Toby Toro LYMPH # 1.8 103/ul Normal 1.2-3.8 [facility] Comment on above: Performed By: #### C BC #### [facility] [address] [place] [address] Dr. Toby Toro Lymphocytes/100 WBC (Bld) 48.8 % Normal 20.5-60.0 [facility] Comment on above: Performed By: #### C BC #### [facility] [address] [place] [address] Dr. Toby Toro MANUAL DIFF REQ NO Normal [facility] Comment on above: Performed By: #### C BC #### [facility] [address] [place] [address] Dr. Toby Toro MCH (RBC) [Entitic mass] 29.0 pg Normal 26.7-34.0 [facility] Comment on above: Performed By: #### C BC #### [facility] [address] [place] [address] Dr. Toby Toro MCHC (RBC) [Mass/Vol] 32.2 g/dL Normal 29.9-35.2 [facility] Comment on above: Performed By: #### C BC #### [facility] [address] [place] [address] Dr. Toby Toro MCV (RBC) [Entitic vol] 90.0 fL Normal 81.0-99.0 [facility] Comment on above: Performed By: #### C BC #### [facility] [address] [place] [address] Dr. Toby Toro MONO # 0.3 103/ul Normal 0.3-0.8 [facility] Comment on above: Performed By: #### C BC #### [facility] [address] [place] [address] Dr. Toby Toro Monocytes/100 WBC (Bld) 8.3 % Normal 1.7-12.0 [facility] Comment on above: Performed By: #### C BC #### [facility] [address] [place] [address] Dr. Toby Toro NEUT # 1.4 103/ul Normal 1.4-6.5 [facility] Comment on above: Performed By: #### C BC #### [facility] [address] [place] [address] Dr. Toby Toro Neutrophils/100 WBC (Bld) 39.5 % Critically low 43.0-75.0 [facility] Comment on above: Performed By: #### C BC #### [facility] [address] [place] [address] Dr. Toby Toro Platelet mean volume (Bld) [Entitic vol] 10.3 fL Normal 9.5-13.5 [facility] Comment on above: Performed By: #### C BC #### [facility] [address] [place] [address] Dr. Toby Toro PLT 181 103/ul Normal 150-450 [facility] Comment on above: Performed By: #### C BC #### [facility] [address] [place] [address] Dr. Toby Toro RBC 4.72 106/ul Normal 4.20-5.40 [facility] Comment on above: Performed By: #### C BC #### [facility] [address] [place] [address] Dr. Toby Toro WBC 3.6 103/ul Critically low 4.0-11.0 [facility] Comment on above: Performed By: #### C BC #### [facility] [address] [place] [address] Dr. Toby Toro LIPID PROFILEon 08-14-2022 CHOL-HDL RATIO NORM SEE BELOW Normal [facility] Comment on above: Result Comment: 3.3 - 4.4 LOW RISK 4.4 - 7.1 AVERAGE RISK 7.1 - 11.0 MODERATE RISK >11.0 HIGH RISK Performed By: #### C MP, LIPID #### [facility] [address] [address] [address] Toby Toro Cholesterol [Mass/Vol] 201 mg/dL Critically high <=200 [facility] Comment on above: Performed By: #### C MP, LIPID #### [facility] [address] [address] [address] Toby Toro Cholesterol in HDL [Mass/Vol] 72 mg/dL Critically high 40-60 [facility] Comment on above: Performed By: #### C MP, LIPID #### [facility] [address] [address] [address] Toby Toro Cholesterol in LDL [Mass/Vol] 106.6 mg/dL Normal [facility] Comment on above: Performed By: #### C MP, LIPID #### [facility] [address] [place] [address] Dr. Toby Toro Cholesterol.total/Cho lesterol in HDL [Mass ratio] 2.8 {ratio} Normal [facility] Comment on above: Performed By: #### C MP, LIPID #### [facility] [address] [place] [address] Dr. Toby Toro HDL NORMAL > or = 60 mg/dl - LOW CARDIOVASCULAR RISK <40 mg/dl - HIGH CARDIOVASCULAR RISK Normal [facility] Comment on above: Performed By: #### C MP, LIPID #### [facility] [address] [address] [address] Toby Toro LDL CALC NORMAL SEE BELOW Normal [facility] Comment on above: Result Comment: <100 mg/dl OPTIMAL 100 - 129 mg/dl NEAR OR ABOVE OPTIMAL 130 - 159 mg/dl BORDERLINE HIGH 160 - 189 mg/dl HIGH >190 mg/dl VERY HIGH Performed By: #### C MP, LIPID #### [facility] [address] [address] [address] Toby Toro Triglyceride [Mass/Vol] 112 mg/dL Normal <=150 [facility] Comment on above: Performed By: #### C MP, LIPID #### [facility] [address] [address] [address] Toby Toro VLDL CALC 22.4 mg/dL Normal [facility] Comment on above: Performed By: #### C MP, LIPID #### [facility] [address] [address] [address] Toby Toro PROF 14(COMP METB)on 022 Albumin [Mass/Vol] 3.9 g/dL Normal 3.4-5.0 [facility] Comment on above: Performed By: #### C MP, LIPID #### [facility] [address] [place] [address] Dr. Toby Toro Albumin/Globulin [Mass ratio] 1.1 {ratio} Normal [facility] Comment on above: Performed By: #### C MP, LIPID #### [facility] [address] [place] [address] Dr. Toby Toro ALP [Catalytic activity/Vol] 87 U/L Normal 46-116 [facility] Comment on above: Performed By: #### C MP, LIPID #### [facility] [address] [place] [address] Dr. Toby Toro ALT [Catalytic activity/Vol] 22 U/L Normal 14-59 [facility] Comment on above: Performed By: #### C MP, LIPID #### [facility] [address] [place] [address] Dr. Toby Toro Anion gap [Moles/Vol] 11.5 mmol/L Normal [facility] Comment on above: Performed By: #### C MP, LIPID #### [facility] [address] [place] [address] Dr. Toby Toro AST [Catalytic activity/Vol] 15 U/L Normal 15-37 [facility] Comment on above: Performed By: #### C MP, LIPID #### [facility] [address] [place] [address] Dr. Toby Toro Bilirubin [Mass/Vol] 1.9 mg/dL Critically high 0.2-1.0 [facility] Comment on above: Performed By: #### C MP, LIPID #### [facility] [address] [place] [address] Dr. Toby Toro Calcium [Mass/Vol] 9.2 mg/dL Normal 8.5-10.1 [facility] Comment on above: Performed By: #### C MP, LIPID #### [facility] [address] [address] [address] Toby Toro Chloride [Moles/Vol] 105 mmol/L Normal 98-107 [facility] Comment on above: Performed By: #### C MP, LIPID #### [facility] [address] [address] [address] Toby Toro CO2 [Moles/Vol] 28.8 mmol/L Normal 21.0-32.0 [facility] Comment on above: Performed By: #### C MP, LIPID #### [facility] [address] [address] [address] Toby Toro Creatinine [Mass/Vol] 0.95 mg/dL Normal 0.55-1.02 [facility] Comment on above: Performed By: #### C MP, LIPID #### [facility] [address] [address] [address] Toby Toro EGFR-AF GIBRALTARIAN >60 Normal >=60 [facility] Comment on above: Performed By: #### C MP, LIPID #### [facility] [address] [address] [address] Toby Toro EGFR-NON AF GIBRALTARIAN 58 mL/min/1.73m2 Critically low >=60 [facility] Comment on above: Performed By: #### C MP, LIPID #### [facility] [address] [address] [address] Toby Toro Globulin (S) [Mass/Vol] 3.6 g/dL Normal [facility] Comment on above: Performed By: #### C MP, LIPID #### [facility] [address] [address] [address] Toby Toro Glucose [Mass/Vol] 103 mg/dL Normal 74-106 [facility] Comment on above: Performed By: #### C MP, LIPID #### [facility] [address] [address] [address] Toby Toro Potassium [Moles/Vol] 4.3 mmol/L Normal 3.5-5.1 [facility] Comment on above: Performed By: #### C MP, LIPID #### [facility] [address] [address] [address] Toby Toro Protein [Mass/Vol] 7.5 g/dL Normal 6.4-8.2 [facility] Comment on above: Performed By: #### C MP, LIPID #### [facility] [address] [address] [address] Toby Toro Sodium [Moles/Vol] 141 mmol/L Normal 136-145 [facility] Comment on above: Performed By: #### C MP, LIPID #### [facility] [address] [address] [address] Toby Toro Urea nitrogen [Mass/Vol] 24.0 mg/dL Critically high 7.0-18.0 [facility] Comment on above: Performed By: #### C MP, LIPID #### [facility] [address] [place] [address] Dr. Toby Toro Urea nitrogen/Creatinine [Mass ratio] 25.3 mg/mg Normal [facility] Comment on above: Performed By: #### C MP, LIPID #### [facility] [address] [place] [address] Dr. Toby Toro Vital Signs Date Time Vital Sign Value Performing Clinician Facility 05-26-2025 09:39-0400 Body height 170.18 cm Rosa Saavedra MD Work Phone: [facility] 05-26-2025 09:39-0400 Body mass index (BMI) [Ratio] 23.3 kg/m2 Rosa Saavedra MD Work Phone: [facility] 05-26-2025 09:39-0400 Body weight 67.58 kg Rosa Saavedra MD Work Phone: [facility] 05-26-2025 09:39-0400 Diastolic blood pressure 81 mm[Hg] Rosa Saavedra MD Work Phone: [facility] 05-26-2025 09:39-0400 Heart rate 82 /min Rosa Saavedra MD Work Phone: [facility] 05-26-2025 09:39-0400 Systolic blood pressure 155 mm[Hg] Rosa Saavedra MD Work Phone: [facility] 03-16-2025 10:15-0400 Body height 170.18 cm [facility] 03-16-2025 10:15-0400 Body mass index (BMI) [Ratio] 23.2 kg/m2 [facility] 03-16-2025 10:15-0400 Body weight 67.35 kg [facility] 03-16-2025 10:15-0400 Diastolic blood pressure 72 mm[Hg] [facility] 03-16-2025 10:15-0400 Heart rate 77 /min [facility] 03-16-2025 10:15-0400 Respiratory rate 12 /min [facility] 03-16-2025 10:15-0400 SaO2% (BldA) [Mass fraction] 98 % [facility] 03-16-2025 10:15-0400 Systolic blood pressure 113 mm[Hg] [facility] 03-04-2024 13:15-0400 Blood Pressure Location Jeromy DONALD [facility] 03-04-2024 13:15-0400 Diastolic blood pressure 62 mm[Hg] Jeromy DONALD [facility] 03-04-2024 13:15-0400 Heart rate 68 /min Jeromy DONALD [facility] 03-04-2024 13:15-0400 Respiratory rate 16 /min Jeromy DONALD [facility] 03-04-2024 13:15-0400 Systolic blood pressure 118 mm[Hg] Jeromy DONALD [facility] 01-16-2024 10:28-0500 Body height 168.28 cm [facility] 01-16-2024 10:28-0500 Body mass index (BMI) [Ratio] 24.2 kg/m2 [facility] 01-16-2024 10:28-0500 Body weight 68.6 kg [facility] 01-16-2024 10:28-0500 Diastolic blood pressure 83 mm[Hg] [facility] 01-16-2024 10:28-0500 Heart rate 86 /min [facility] 01-16-2024 10:28-0500 Systolic blood pressure 129 mm[Hg] [facility] 07-23-2023 09:30-0400 Body height 168.28 cm Rosa Saavedra Other [facility] Other 07-23-2023 09:30-0400 Body mass index (BMI) [Ratio] 24.19 kg/m2 Rosa Saavedra Other [facility] Other 07-23-2023 09:30-0400 Body weight 68.49 kg Rosa Saavedra Other [facility] Other 07-23-2023 09:30-0400 Diastolic blood pressure 76 mm[Hg] Rosa Saavedra Other [facility] Other 07-23-2023 09:30-0400 Systolic blood pressure 121 mm[Hg] Rosa Saavedra Other [facility] Other Encounters Encounter Date Encounter Type Care Provider Facility Start: 05-26-2025 End: 05-26-2025 ambulatory Rosa Saavedra MD Work Phone: [facility] Work Phone: Start: 05-26-2025 End: 05-26-2025 Patient encounter procedure Jen Fu DO -[facility] Work Phone: Start: 03-16-2025 End: 03-16-2025 ambulatory [facility] Work Phone: Start: 03-16-2025 End: 03-16-2025 Patient encounter procedure [facility] Work Phone: Start: 05-13-2024 End: 05-13-2024 ambulatory Jeromy Lopez NILL Facility:[id number] Start: 03-04-2024 End: 03-04-2024 ambulatory Jeromy R NILL Facility:[facility] Start: 03-04-2024 End: 03-04-2024 Patient encounter procedure Jeromy R NILL General Surgery Nill/[facility] Start: 01-30-2024 ambulatory Jeromy NILL Facility:[facility] Start: 01-16-2024 End: 01-16-2024 ambulatory [facility] Work Phone: Start: 01-16-2024 End: 01-16-2024 Patient encounter procedure [facility] Work Phone: Start: 09-06-2023 End: 09-06-2023 ambulatory Rosa Saavedra Other [facility] Other Start: 09-06-2023 Encounter by compute r link Rosa Saavedra [facility] Start: 07-23-2023 End: 07-23-2023 ambulatory Rosa Saavedra Other [facility] Other Start: 07-23-2023 Office outpatient visit 15 minutes Rosa Saavedra [facility] Start: 07-10-2023 End: 07-10-2023 ambulatory Rosa Saavedra Other [facility] Other Start: 07-10-2023 Telephone encounter Rosa Saavedra [facility] Start: 08-20-2022 End: 08-21-[address] DESTINY RODARTE Facility:[facility] Start: 08-14-2022 End: 08-15-[address] DESTINY [facility]ODARTE Facility:H1 Procedures Date Procedure Procedure Detail Performing Clinician Start: 11-04-2013 Colonoscopy Jeromy MAGANA Screening for malign ant neoplasm of colon Rosa Saavedra Other Plan of Treatment Date Care Activity Detail Author Start: 01-16-2024 Patient referral [facility] Work Phone: Comprehensive metabo lic 1999 panel - Serum or Plasma [facility] Comprehensive metabo lic 1999 panel - Serum or Plasma [facility] Hepatic function panel [facility] Hepatitis A virus Ab [Presence] in Serum by Immunoassay [facility] Hepatitis B core ant ibody measurement [facility] Hepatitis B virus morales rface Ab [Presence] in Serum [facility] Patient referral [facility] Work Phone: [facility] Immunizations Immunization Date Immunization Notes Care Provider Fa [facility] 08-20-2023 influenza virus vaccine, unspecified formulation Jeromy DONALD [facility] [place] 04-18-2022 SARS-CoV-2 (COVID-19 ) mRNA-1273 vaccine Jeromy SHABANA [facility] 10-12-2021 SARS-CoV-2 (COVID-19 ) mRNA-1273 vaccine Jeromy KOTHARINihsa [facility] Comment on above: Result Comment: 2023: [id number] 01-31-2021 SARS-CoV-2 (COVID-19 ) mRNA-1273 vaccine Jeromy KOTAHRINisha [facility] Comment on above: Result Comment: 2023: [id number] 01-03-2021 SARS-CoV-2 (COVID-19 ) mRNA-1273 vaccine Jeromy KOTHARINisha [facility] Comment on above: Result Comment: 2023: [id number] Payers Date Payer Category Payer Medicare [id number] 1960 Unknown [id number] 1950 Unknown [id number] 1950 Unknown [id number] 1950 Unknown [id number] 1950 Unknown [id number] Social History Date Type Detail Facility Unknown if ever smoked [facility] Other Sex Assigned At [facility] Start: 1950 Sex Assigned At Female [facility] Start: 03-04-2024 End: 03-16-2025 Tobacco smoking status Never smoked tobacco (finding) [facility] [place] Tobacco smoking status Never [facility] Start: 03-16-2025 Sex Female (finding) [facility] Functional Status Date Assessment Result Facility 03-04-2024 Functional Status N/A [facility] [place] Clinical Notes 07-23-2023 to 03-16-2025 Note Date & Type Note Facility 03-16-2025 Evaluation note Diagnosis Onset Date Resolution Hyperlipidemia acute February 9:44am Medicare annual wellness visit, subsequent acute March 16 9:44am Jaundice acute May 26, 2025 9:20am Total bilirubin, elevated acute May 26, 2025 9:20am [facility] Work Phone: 1(230) 449-258304-10-2024 NoteChief Complaint consultation for colonoscopy HPI Staff 73 [...] swallowing difficulties, no hearing loss, no ear infection(s),no nose bleeds. Cardiovascular: normal blood pressure, no [...] (COVID-19) mRNA-1273 vaccine 01/03/2021 Recorded 2024-02-07: [id number] Comment: Electronically Signed By: SHABANA ALVARES, Jeromy Downing\Date and Time Signed: 03/04/24 13:33 EDT 07-23-2023 Evaluation note* Encounter Date Diagnosis Assessment Notes Treatment Notes Treatment Clinical Notes Jun, Age-related osteoporosis without current pathological [...] printed, alendronate [Medication Leaflet] material was printed [facility] Other Evaluation + Plan note No data available for this section [facility] [place] Evaluation noteNo InformationNort [employer] Other Evaluation note* Diagnosis Onset Date Resolution Status Screening for colorectal cancer acute [facility] Work Phone: Evaluation note* Diagnosis Onset Date Resolution Status Admit Date Hyperlipidemia acute February 9:44am [facility] Work Phone: History general Narrative - Reported* Type Description Date Medical History Hyperlipidemia [facility] Other Hospital Discharge instructionsAmbulatory Orders* Referral to General Surgery Time Frame: 01/16/24, Location: None Selected [facility] Work Phone: Hospital Discharge instructions No data available for this section [facility] [place] Progress note No data available for this section [facility] [place] Reason for referral (narrative)No reason for referral information available[facility] Work [facility]: Summary Purpose Family History Relationship Condition Age at Onset Recorded Date/T [place] father Unknown family member Heart disease Unknown Unknown sister Hypertension Unknown Advance Directives Advance Directive Response Recorded Date/ Time Advance Directives No December 12:01pm Advance Directive Response Recorded Date/ Time Advance Directives No December 1:01pm Chief Complaint and Reason for Visit Chief Complaint Wellness Reason for Visit Screening for colore ctal cancer Chief Complaint Admit Date wellness March 16, 2025 9:4 4am Reason for Visit Admit Date Hyperlipidemia March 16, 2025 9:4 4am Chief Complaint Admit Date wellness March 16, 2025 9:4 4am Refer: jaundice May 26, 2025 9:20a m Reason for Visit Admit Date Hyperlipidemia March 16, 2025 9:4 4am Medicare annual wellness visit, subseque nt March 16, 2025 9:44am Jaundice May 26, 2025 9:20a m Total bilirubin, elevated May 26, 2025 9:20am Additional Source Comments INFORMATION SOURCE (unrecogn ized section and content) DATE CREATED AUTHOR 08/26/2022 [facility] DATE CREATED AUTHOR AUTHOR'S ORGANIZ ATION 05/20/2024 [facility] REASON FOR VISIT (unrecogniz ed section and content) DEXA resultResults of DEXA S canrefil Atorvastatin Care Teams (unrecognized sec tion and content) Team Status: Active Member Role Status Dates Rosa Saavedra MD Primary Care Provider Active Team Status: Inactive Member Role Status Dates Rosa Saavedra MD Primary Care Provide r, Attending Provider Active Start: January 16, 2024 End: January 16, 2024 Team Status: Inactive Member Role Status Dates Rosa Saavedra MD Primary Care Provide r, Attending Provider Active Start: March 16, 2025 End: March 16, 2025 Team Status: Inactive Member Role Status Dates Rosa Saavedra MD Primary Care Provider Active Start: March 16, 2025 End: March 16, 2025 Rosa Saavedra MD Attending Provider Active St art: March 16, 2025 End: March 16, 2025 Team Status: Inactive Member Role Status Dates Rosa Saavedra MD Primary Care Provider Active Start: May 26, 2025 End: May 26, 2025 Jen Fu DO Attending Provider Active St art: May 26, 2025 End: May 26, 2025 Goals (unrecognized section and content) Goals may [...] BE BASED ON THE PRIMARY CLINICAL RECORDS. [facility] [employer] [facility]. provides no warranty or guarantee of the accuracy or completeness of information in this document.
[2025-06-08 11:23] LABS: Alanine Aminotransferase 24 U/L (14-59); Albumin Globulin Ratio 1.1; Albumin Level 3.6 g/dL (3.4-5.0); Alkaline Phosphatase 83 U/L (46-116); Aspartate Amino Transferase 19 U/L (15-37); Globulin 3.4 g/dL; Total Protein 7.0 g/dL (6.4-8.2)
[2025-06-09 06:08] LABS: Hep A Ab, Total Negative (Negative); Immunoglobulin G, Qn 985 mg/dL (586-1602)
[2025-06-10 08:09] LABS: Antinuclear Antibodies, IFA Negative (.)
== END 2025-06-08 08:47 | disposition home or self-care (01) ==
LOC: US 08:50
PROVIDERS: PCP Family Medicine; Visit Provider Internal Medicine Gastroenterology
DX: R17 Unspecified jaundice (principal); M81.0 Age-related osteoporosis without current pathological fracture
CPT/HCPCS: 36415; 76705; 80076; 82103; 82390; 82784; 83516; 86038; 86317; 86704; 86708; 86803; 87340